=== PATIENT | female | born 1990 | race American Indian/Alaskan Native ===

== ENCOUNTER 2016-10-14 14:14 | Emergency (ER) | payer OTHER, MEDICAID ==
[2016-10-14 14:32] VITALS: BP 140/93
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
[2016-10-14 18:07] LABS: Bilirubin,Urine NEG (Negative); Blood,Urine NEG (Negative); Ketones,Urine 20 mg/dL (Negative); Leukocyte Esterase,Urine TR (Negative); Mucus,Urine 3+ /HPF; Nitrite,Urine NEG (Negative); Protein,Urine <15 mg/dL mg/dL (Negative); Urobilinogen,Urine < 2.0 mg/dL (<2.0)
== END 2016-10-14 18:28 | disposition home or self-care (01) ==
LOC: ED 14:14
DX: N39.0 Urinary tract infection, site not specified (principal); Z91.040 Latex allergy status
CPT/HCPCS: 81001; 81025; 99282

== ENCOUNTER 2016-10-24 13:46 | Emergency (ER) | payer MEDICAID, OTHER ==
[2016-10-24] MEDS ORDERED: ATARAX PO ONE (16:48)
[2016-10-24] MEDS ORDERED: PEPCID PO ONE (16:49)
--- NOTE | 2016-10-24 17:03 | Emergency Department Report ---
ED Allergic Reaction HPI - General Chief complaint: Upper Respiratory Infection Stated complaint: HIVES/BODY ACHES/COUGH/DIFF BREATHING Time Seen by Provider: 10/24/16 16:28 Source: patient Mode of arrival: Ambulatory Limitations: No Limitations - History of Present Illness Initial Comments: 5-year-old female past medical history recurrent UTIs presents with complaint of persistent feeling of dysuria despite antibiotic use, patient placed on a regimen of Bactrim last week for UTI symptoms. Patient states that her symptoms have persisted and she is also experiencing a itchy diffuse rash in arms legs chest back and abdomen. Patient denies any fever or chills nausea or vomiting denies any flank pain. Denies any swelling of her face and lips, denies any dyspnea no difficulty breathing MD Complaint: allergic reaction, hives Onset/Timin -: week(s) Symptoms: rash, itching - Related Data Previous Rx's Medication Instructions Recorded Last Taken Type Promethazine [Phenergan] 25 mg PO Q6H PRN #20 tablet 06/28/13 01/24/14 Rx Promethazine [Phenergan] 25 mg [place] Q6H PRN #6 supp.rect 06/28/13 Unknown Rx Cephalexin [Keflex] 500 mg PO BID #14 capsule 06/29/13 Unknown Rx Vit-Fe Fumar-FA [ 1 each PO QDAY #30 tablet 06/29/13 Unknown Rx Vitamin] metroNIDAZOLE 0.75% [Metrogel 1 applicatio TP BID #1 tube 06/29/13 02/10/14 Rx 0.75%] Ferrous Sulfate [Feosol 325 MG tab] 325 mg PO BID #60 tablet 02/15/14 Unknown Rx Ibuprofen [Motrin 600 MG tab] 600 mg PO Q6HR PRN #30 tablet 02/15/14 Unknown Rx Vit-Fe Fumar-FA [ 1 each PO QDAY #30 tablet 02/15/14 Unknown Rx Vitamin] Sulfamethoxazole/Trimethoprim 1 each PO BID #10 tablet 10/14/16 Unknown Rx [Bactrim DS TAB] Hydroxyzine HCl 25 mg PO BID PRN #25 tablet 10/24/16 Unknown Rx Nitrofurantoin Oliver/M-Cryst 100 mg PO Q12HR #14 capsule 10/24/16 Unknown Rx [Macrobid CAP] Allergies Allergy/AdvReac Type Severity Reaction Status Date / Time latex Allergy Intermediate Itching Verified 02/14/14 02:20 ED Review of Systems ROS: Stated complaint: HIVES/BODY ACHES/COUGH/DIFF BREATHING Other details as noted in HPI ED Past Medical Hx - Past Medical History Previous Medical History?: No Hx Hypertension: No Hx Congestive Heart Failure: No Hx Diabetes: No Hx Deep Vein Thrombosis: No Hx Renal Disease: No Hx Sickle Cell Disease: No Hx Seizures: No Hx Asthma: No Hx COPD: No Hx HIV: No - Surgical History Past Surgical History?: Yes Additional Surgical History: oral surgery - Social History Smoking Status: Never Smoker Substance Use Type: None - Medications Home Medications: Home Medications Medication Instructions Recorded Confirmed Last Taken Type Promethazine [Phenergan] 25 mg PO Q6H PRN #20 tablet 06/28/13 02/14/14 01/24/14 Rx Promethazine [Phenergan] 25 mg [place] Q6H PRN #6 supp.rect 06/28/13 02/14/14 Unknown Rx Cephalexin [Keflex] 500 mg PO BID #14 capsule 06/29/13 02/14/14 Unknown Rx Vit-Fe Fumar-FA [ 1 each PO QDAY #30 tablet 06/29/13 02/14/14 Unknown Rx Vitamin] metroNIDAZOLE 0.75% [Metrogel 1 applicatio TP BID #1 tube 06/29/13 02/14/1409/25 Rx 0.75%] Ferrous Sulfate [Feosol 325 MG tab] 325 mg PO BID #60 tablet 02/15/14 Unknown Rx Ibuprofen [Motrin 600 MG tab] 600 mg PO Q6HR PRN #30 tablet 02/15/14 Unknown Rx Vit-Fe Fumar-FA [ 1 each PO QDAY #30 tablet 02/15/14 Unknown Rx Vitamin] Sulfamethoxazole/Trimethoprim 1 each PO BID #10 tablet 10/14/16 Unknown Rx [Bactrim DS TAB] Hydroxyzine HCl 25 mg PO BID PRN #25 tablet 10/24/16 Unknown Rx Nitrofurantoin [place]/M-Cryst 100 mg PO Q12HR #14 capsule 10/24/16 Unknown Rx [Macrobid CAP] ED Physical Exam - General Limitations: No Limitations General appearance: alert, in no apparent distress - Head Head exam: Present: atraumatic, normocephalic - Eye Eye exam: Present: normal appearance, PERRL, EOMI - ENT ENT exam: Present: normal exam, normal orophraynx, mucous membranes moist - Neck Neck exam: Present: normal inspection - Respiratory Respiratory exam: Present: normal lung sounds bilaterally. Absent: respiratory distress - Cardiovascular Cardiovascular Exam: Present: regular rate, normal rhythm. Absent: systolic murmur, diastolic murmur, rubs, gallop - GI/Abdominal GI/Abdominal exam: Present: soft, normal bowel sounds - Extremities Exam Extremities exam: Present: normal inspection - Back Exam Back exam: Present: normal inspection - Neurological Exam Neurological exam: Present: alert, oriented X3, CN II-XII intact, normal gait - Psychiatric Psychiatric exam: Present: normal affect, normal mood - Skin Skin exam: Present: warm, dry, intact, normal color, rash, urticaria ED Course Vital Signs 10/24/16 10/24/16 13:51 18:34 Temperature 98.3 F Pulse Rate 109 H 97 H Respiratory 18 16 Rate Blood Pressure 132/85 Blood Pressure 127/79 [Left] O2 Sat by Pulse 100 97 Oximetry ED Medical Decision Making - Medical Decision Making A/P: UTI, medication allergy 1-a likely has rash secondary to Bactrim use, still has evidence of UTI and urine will give patient a course of macrobid instead for empiric coverage 2-1 dose of hydroxyzine and Pepcid gave patient immediate relief of itching and has resolved some of rash. We'll give patient outpatient regimen of these medicines for allergic reaction pruritus and rash 3-patient to follow-up with primary medical doctor 4-urine culture sent 5- advised patient to return if symptoms worsen Critical care attestation.: If time is entered above; I have spent that time in minutes in the direct care of this critically ill patient, excluding procedure time. ED Disposition Clinical Impression: UTI (urinary tract infection) Qualifiers: Urinary tract infection type: acute cystitis Hematuria presence: without hematuria Qualified Code(s): N30.00 - Acute cystitis without hematuria Allergic reaction caused by a drug Qualifiers: Encounter type: initial encounter Qualified Code(s): T78.40XA - Allergy, unspecified, initial encounter Disposition: PATIENT REGISTERED,NO TRIAGE Is pt being admited?: No Does the pt Need Aspirin: No Condition: Stable Instructions: Urinary Tract Infection in Women (ED), Urticaria (ED), Antibiotic Medication Allergy (ED), Dysuria (ED) Prescriptions: Hydroxyzine HCl 25 mg PO BID PRN #25 tablet PRN Reason: Allergy Symptoms Nitrofurantoin [place]/M-Cryst [Macrobid CAP] 100 mg PO Q12HR #14 capsule Referrals: [facility]– [place][Note 2] [Outside] - 3-5 Days RUEL CARCAMO JR, MD [Staff Physician] - 3-5 Days PRIMARY CARE, [Primary Care Provider] - 3-5 Days
[2016-10-24 17:21] LABS: Bacteria,Urine 1+ /HPF (Negative); Bilirubin,Urine NEG (Negative); Blood,Urine SM (Negative); Ketones,Urine TR mg/dL (Negative); Leukocyte Esterase,Urine LG (Negative); Mucus,Urine FEW /HPF; Nitrite,Urine NEG (Negative); Protein,Urine <15 mg/dL mg/dL (Negative); Urobilinogen,Urine < 2.0 mg/dL (<2.0)
[2016-10-24 18:35] VITALS: BP 127/79
== END 2016-10-24 18:34 | disposition left against medical advice (07) ==
LOC: ED 13:46
DX: N30.00 Acute cystitis without hematuria (principal); T78.40XA Allergy, unspecified, initial encounter; Y92.9 Unspecified place or not applicable
CPT/HCPCS: 81001; 81025; 87086; 99283

== ENCOUNTER 2017-08-10 19:01 | Emergency (ER) | payer MEDICAID ==
[2017-08-10 20:35] LABS: Eosinophils % (Auto) 0.4 % (0.0-4.3); Hematocrit 38.5 % (30.3-42.9); Hemoglobin 12.6 gm/dl (10.1-14.3); Mean Corpuscular HGB Conc 33 % (30-34); Mean Corpuscular Hemoglobin 28 pg (28-32); Mean Corpuscular Volume 85 fl (79-97); Platelet Count 372 K/mm3 (140-440); Red Blood Count 4.53 M/mm3 (3.65-5.03); Red Cell Distribution Width 14.4 % (13.2-15.2); White Blood Count 8.2 K/mm3 (4.5-11.0)
[2017-08-10 20:51] LABS: BUN/Creatinine Ratio 10; Blood Urea Nitrogen 6 mg/dL (7-17); Calcium 9.8 mg/dL (8.4-10.2); Carbon Dioxide 26 mmol/L (22-30); Glucose 116 mg/dL (65-100)
[2017-08-10 20:52] LABS: Anion Gap 19 mmol/L; Chloride 97.5 mmol/L (98-107); Potassium 3.5 mmol/L (3.6-5.0); Sodium 139 mmol/L (137-145)
[2017-08-11 02:25] VITALS: BP 99/48
[2017-08-11] MEDS ORDERED: MOTRIN PO ONE (03:03)
[2017-08-11] MEDS ORDERED: TYLENOL PO ONE (03:03)
--- NOTE | 2017-08-11 03:57 | Emergency Department Report ---
ED General Adult HPI - General Chief complaint: Chest Pain Stated complaint: JOINT PAIN Time Seen by Provider: 08/11/17 02:19 Source: patient Mode of arrival: Ambulatory Limitations: No Limitations - History of Present Illness Initial comments: Patient is a 26-year-old female no significant past medical history who presents with joint pain and weakness has been going on for last couple days. Patient denies any vaginal discharge or vaginal bleeding. She states that her pain is a 5 out of 10 and is worse with working and better with rest. Patient denies any nausea or vomiting or any sick contacts. She also complains of stuffy nose and dry cough that's been going on. She denies having any fevers. Her pain is an achy type pain throughout her body and it is intermittent Severity scale (0 -10): 3 - Related Data Previous Rx's Medication Instructions Recorded Last Taken Type Promethazine [Phenergan] 25 mg PO Q6H PRN #20 tablet 06/28/13 01/24/14 Rx Promethazine [Phenergan] 25 mg DC Q6H PRN #6 supp.rect 06/28/13 Unknown Rx Cephalexin [Keflex] 500 mg PO BID #14 capsule 06/29/13 Unknown Rx Vit-Fe Fumar-FA [ 1 each PO QDAY #30 tablet 06/29/13 Unknown Rx Vitamin] metroNIDAZOLE 0.75% [Metrogel 1 applicatio TP BID #1 tube 06/29/13 02/10/14 Rx 0.75%] Ferrous Sulfate [Feosol 325 MG tab] 325 mg PO BID #60 tablet 02/15/14 Unknown Rx Ibuprofen [Motrin 600 MG tab] 600 mg PO Q6HR PRN #30 tablet 02/15/14 Unknown Rx Vit-Fe Fumar-FA [ 1 each PO QDAY #30 tablet 02/15/14 Unknown Rx Vitamin] Sulfamethoxazole/Trimethoprim 1 each PO BID #10 tablet 10/14/16 Unknown Rx [Bactrim DS TAB] Hydroxyzine HCl 25 mg PO BID PRN #25 tablet 10/24/[address] [place]/M-Cryst 100 mg PO Q12HR #14 capsule 10/24/16 Unknown Rx [Macrobid CAP] Ibuprofen 400 mg PO Q8HR #30 tablet 08/11/17 Unknown Rx Allergies Allergy/AdvReac Type Severity Reaction Status Date / Time latex Allergy Intermediate Itching Verified 02/14/14 02:20 ED Review of Systems ROS: Stated complaint: JOINT PAIN Other details as noted in HPI Constitutional: denies: chills, fever Eyes: denies: eye pain, eye discharge, vision change ENT: denies: ear pain, throat pain Respiratory: denies: cough, shortness of breath, wheezing Cardiovascular: denies: chest pain, palpitations Endocrine: no symptoms reported Gastrointestinal: denies: abdominal pain, nausea, diarrhea Genitourinary: denies: urgency, dysuria, discharge Musculoskeletal: myalgia. denies: back pain, joint swelling, arthralgia Skin: denies: rash, lesions Neurological: denies: headache, weakness, paresthesias Psychiatric: denies: anxiety, depression Hematological/Lymphatic: denies: easy bleeding, easy bruising ED Past Medical Hx - Past Medical History Previous Medical History?: No Hx Hypertension: No Hx Congestive Heart Failure: No Hx Diabetes: No Hx Deep Vein Thrombosis: No Hx Renal Disease: No Hx Sickle Cell Disease: No Hx Seizures: No Hx Asthma: No Hx COPD: No Hx HIV: No - Surgical History Past Surgical History?: Yes Additional Surgical History: oral surgery - Social History Smoking Status: Never Smoker - Medications Home Medications: Home Medications Medication Instructions Recorded Confirmed Last Taken Type Promethazine [Phenergan] 25 mg PO Q6H PRN #20 tablet 06/28/13 02/14/14 01/24/14 Rx Promethazine [Phenergan] 25 mg DC Q6H PRN #6 supp.rect 06/28/13 02/14/14 Unknown Rx Cephalexin [Keflex] 500 mg PO BID #14 capsule 06/29/13 02/14/14 Unknown Rx Vit-Fe Fumar-FA [ 1 each PO QDAY #30 tablet 06/29/13 02/14/14 Unknown Rx Vitamin] metroNIDAZOLE 0.75% [Metrogel 1 applicatio TP BID #1 tube 06/29/13 02/14/1409/25 Rx 0.75%] Ferrous Sulfate [Feosol 325 MG tab] 325 mg PO BID #60 tablet 02/15/14 Unknown Rx Ibuprofen [Motrin 600 MG tab] 600 mg PO Q6HR PRN #30 tablet 02/15/14 Unknown Rx Vit-Fe Fumar-FA [ 1 each PO QDAY #30 tablet 02/15/14 Unknown Rx Vitamin] Sulfamethoxazole/Trimethoprim 1 each PO BID #10 tablet 10/14/16 Unknown Rx [Bactrim DS TAB] Hydroxyzine HCl 25 mg PO BID PRN #25 tablet 10/24/[address] [place]/M-Cryst 100 mg PO Q12HR #14 capsule 10/24/16 Unknown Rx [Macrobid CAP] Ibuprofen 400 mg PO Q8HR #30 tablet 08/11/17 Unknown Rx ED Physical Exam - General Limitations: No Limitations General appearance: alert, in no apparent distress - Head Head exam: Present: atraumatic, normocephalic - Eye Eye exam: Present: normal appearance - ENT ENT exam: Present: mucous membranes moist - Neck Neck exam: Present: normal inspection - Respiratory Respiratory exam: Present: normal lung sounds bilaterally. Absent: respiratory distress - Cardiovascular Cardiovascular Exam: Present: regular rate, normal rhythm. Absent: systolic murmur, diastolic murmur, rubs, gallop - GI/Abdominal GI/Abdominal exam: Present: soft, normal bowel sounds - Extremities Exam Extremities exam: Present: normal inspection - Back Exam Back exam: Present: normal inspection - Neurological Exam Neurological exam: Present: alert, oriented X3 - Psychiatric Psychiatric exam: Present: normal affect, normal mood - Skin Skin exam: Present: warm, dry, intact, normal color. Absent: rash ED Course Vital Signs 08/10/17 08/11/17 08/11/17 19:37 00:30 00:42 Temperature 98.1 F 98.4 F Pulse Rate 114 H 83 Respiratory 18 18 Rate Blood Pressure 130/94 145/82 Blood Pressure 145/82 [Left] O2 Sat by Pulse 100 98 Oximetry 08/11/17 08/11/17 08/11/17 00:44 00:45 01:00 Temperature Pulse Rate 83 89 94 H Respiratory 18 13 12 Rate Blood Pressure 129/83 Blood Pressure [Left] O2 Sat by Pulse Oximetry 08/11/17 08/11/17 08/11/17 01:15 01:30 01:45 Temperature Pulse Rate 89 92 H 95 H Respiratory 15 18 10 L Rate Blood Pressure 127/85 122/77 114/64 Blood Pressure [Left] O2 Sat by Pulse 99 Oximetry 08/11/17 08/11/17 02:00 02:15 Temperature Pulse Rate 81 76 Respiratory 11 L 15 Rate Blood Pressure 117/55 99/48 Blood Pressure [Left] O2 Sat by Pulse 99 Oximetry ED Medical Decision Making - Lab Data Result diagrams: 08/10/17 20:23 08/10/17 20:23 Lab Results 08/10/17 08/10/17 08/10/17 Range/Units 20:23 20:23 20:23 WBC 8.2 (4.5-11.0) K/mm3 RBC 4.53 (3.65-5.03) M/mm3 Hgb 12.6 (10.1-14.3) gm/dl Hct 38.5 (30.3-42.9) % MCV 85 (79-97) fl MCH 28 (28-32) pg MCHC 33 (30-34) % RDW 14.4 (13.2-15.2) % Plt Count 372 (140-440) K/mm3 Lymph % (Auto) 30.9 (13.4-35.0) % [place] % (Auto) 8.5 H (0.0-7.3) % Eos % (Auto) 0.4 (0.0-4.3) % Baso % (Auto) 1.0 (0.0-1.8) % Lymph # 2.5 (1.2-5.4) K/mm3 [place] # 0.7 (0.0-0.8) K/mm3 Eos # 0.0 (0.0-0.4) K/mm3 Baso # 0.1 (0.0-0.1) K/mm3 Seg Neutrophils % 59.2 (40.0-70.0) % Seg Neutrophils # 4.8 (1.8-7.7) K/mm3 Sodium 139 (137-145) mmol/L Potassium 3.5 L (3.6-5.0) mmol/L Chloride 97.5 L (98-107) mmol/L Carbon Dioxide 26 (22-30) mmol/L Anion Gap 19 mmol/L BUN 6 L (7-17) mg/dL Creatinine 0.6 L (0.7-1.2) mg/dL Estimated GFR > 60 ml/min BUN/Creatinine Ratio 10 % Glucose 116 H (65-100) mg/dL Calcium 9.8 (8.4-10.2) mg/dL Troponin T < 0.010 (0.00-0.029) ng/mL HCG, Qual Negative (Negative) 08/10/17 08/11/17 Range/Units 22:33 02:14 WBC (4.5-11.0) K/mm3 RBC (3.65-5.03) M/mm3 Hgb (10.1-14.3) gm/dl Hct (30.3-42.9) % MCV (79-97) fl MCH (28-32) pg MCHC (30-34) % RDW (13.2-15.2) % Plt Count (140-440) K/mm3 Lymph % (Auto) (13.4-35.0) % [place] % (Auto) (0.0-7.3) % Eos % (Auto) (0.0-4.3) % Baso % (Auto) (0.0-1.8) % Lymph # (1.2-5.4) K/mm3 [place] # (0.0-0.8) K/mm3 Eos # (0.0-0.4) K/mm3 Baso # (0.0-0.1) K/mm3 Seg Neutrophils % (40.0-70.0) % Seg Neutrophils # (1.8-7.7) K/mm3 Sodium (137-145) mmol/L Potassium (3.6-5.0) mmol/L Chloride (98-107) mmol/L Carbon Dioxide (22-30) mmol/L Anion Gap mmol/L BUN (7-17) mg/dL Creatinine (0.7-1.2) mg/dL Estimated GFR ml/min BUN/Creatinine Ratio % Glucose (65-100) mg/dL Calcium (8.4-10.2) mg/dL Troponin T < 0.010 < 0.010 (0.00-0.029) ng/mL HCG, Qual (Negative) - EKG Data -: EKG Interpreted by Me - EKG Data 08/11/17 03:59 EKG shows normal sinus rhythm no ST segment elevation or T wave inversion normal axis - Medical Decision Making Chief medical diagnosis: Influenza Differential medical diagnosis: Hypokalemia, hyponatremia, non-STEMI CBC, CMP, EKG, troponin and re-evaluate patient. Patient most likely has viral illness given signs and symptoms. Patient's lab work is unremarkable I will give patient Tylenol or Motrin to go home with. Discussed found patient patient agrees plan additional verbal discharge contractions were given. Critical care attestation.: If time is entered above; I have spent that time in minutes in the direct care of this critically ill patient, excluding procedure time. ED Disposition Clinical Impression: Myalgia, Viral illness Disposition: DC-01 TO HOME OR SELFCARE Is pt being admited?: No Does the pt Need Aspirin: No Condition: Stable Instructions: Influenza (ED) Prescriptions: Ibuprofen 400 mg PO Q8HR #30 tablet Referrals: SALOMON THOMPSON MD [Primary Care Provider] - 3-5 Days
== END 2017-08-11 04:37 | disposition home or self-care (01) ==
LOC: ED 19:01
DX: B34.9 Viral infection, unspecified (principal); M79.1 Myalgia
CPT/HCPCS: 36415; 80048; 84484; 84703; 85025; 93005; 93010

== ENCOUNTER 2017-08-12 20:21 | Emergency (ER) | payer MEDICAID ==
[2017-08-12 20:55] LABS: Basophils % (Auto) 0.7 % (0.0-1.8); Eosinophils % (Auto) 1.2 % (0.0-4.3); Hematocrit 38.5 % (30.3-42.9); Hemoglobin 12.3 gm/dl (10.1-14.3); Mean Corpuscular HGB Conc 32 % (30-34); Mean Corpuscular Hemoglobin 27 pg (28-32); Mean Corpuscular Volume 85 fl (79-97); Platelet Count 392 K/mm3 (140-440); Red Blood Count 4.52 M/mm3 (3.65-5.03); Red Cell Distribution Width 14.5 % (13.2-15.2); White Blood Count 7.3 K/mm3 (4.5-11.0)
[2017-08-12 21:06] LABS: Anion Gap 17 mmol/L; BUN/Creatinine Ratio 10; Blood Urea Nitrogen 7 mg/dL (7-17); Calcium 9.9 mg/dL (8.4-10.2); Carbon Dioxide 28 mmol/L (22-30); Chloride 97.5 mmol/L (98-107); Glucose 105 mg/dL (65-100); Potassium 3.5 mmol/L (3.6-5.0); Sodium 139 mmol/L (137-145)
--- NOTE | 2017-08-12 22:13 | XRay Report ---
FINAL REPORT PROCEDURE: XR CHEST ROUTINE 2V TECHNIQUE: PA and lateral chest radiographs were obtained. CPT 04710 HISTORY: Shortness of breath COMPARISON: No prior studies are available for comparison. FINDINGS: Heart: Normal. Mediastinum/Vessels: Normal. Lungs/Pleural space: Normal. Bony thorax: No acute osseous abnormality. Moderate thoracic scoliosis present convex the left apex T4-T5 level. Other: IMPRESSION: Scoliosis. No evidence of acute cardiac or pulmonary process..
--- NOTE | 2017-08-13 01:05 | Emergency Department Report ---
HPI - General Chief Complaint: Dyspnea/Respdistress Time Seen by Provider: 08/13/17 00:47 - HPI HPI: Patient is a 26-year-old female presents to the ED complaining of generalized body aches and having some difficulty breathing earlier today is now resolved. Patient states she was diagnosed with the flu couple of days ago and has been taking some TheraFlu medication for her symptoms. Patient states she sat allergies and was taking some allergy medication but did not like it because it was making her itch. Patient denies any fevers/chills/nausea/vomiting/chest pain/P/dizziness ED Past Medical Hx - Past Medical History Hx Hypertension: No Hx Congestive Heart Failure: No Hx Diabetes: No Hx Deep Vein Thrombosis: No Hx Renal Disease: No Hx Sickle Cell Disease: No Hx Seizures: No Hx Asthma: No Hx COPD: No Hx HIV: No - Surgical History Additional Surgical History: oral surgery - Social History Smoking Status: Never Smoker Substance Use Type: None - Medications Home Medications: Home Medications Medication Instructions Recorded Confirmed Last Taken Type Promethazine [Phenergan] 25 mg PO Q6H PRN #20 tablet 06/28/13 02/14/14 01/24/14 Rx Promethazine [Phenergan] 25 mg IA Q6H PRN #6 supp.rect 06/28/13 02/14/14 Unknown Rx Cephalexin [Keflex] 500 mg PO BID #14 capsule 06/29/13 02/14/14 Unknown Rx Vit-Fe Fumar-FA [ 1 each PO QDAY #30 tablet 06/29/13 02/14/14 Unknown Rx Vitamin] metroNIDAZOLE 0.75% [Metrogel 1 applicatio TP BID #1 tube 06/29/13 02/14/1409/25 Rx 0.75%] Ferrous Sulfate [Feosol 325 MG tab] 325 mg PO BID #60 tablet 02/15/14 Unknown Rx Vit-Fe Fumar-FA [ 1 each PO QDAY #30 tablet 02/15/14 Unknown Rx Vitamin] Sulfamethoxazole/Trimethoprim 1 each PO BID #10 tablet 10/14/16 Unknown Rx [Bactrim DS TAB] Hydroxyzine HCl 25 mg PO BID PRN #25 tablet 10/24/16 [address]itro[address] [place]/M-Cryst 100 mg PO Q12HR #14 capsule 10/24/16 Unknown Rx [Macrobid CAP] Ibuprofen 400 mg PO Q8HR #30 tablet 08/11/17 Unknown Rx ALBUTEROL Inhaler [ProAir HFA 2 puff IH QID PRN #1 pump 08/13/17 Unknown Rx Inhaler] Cetirizine HCl [Zyrtec] 10 mg PO DAILY #24 tablet 08/13/17 Unknown Rx Ibuprofen [Motrin 600 MG tab] 600 mg PO Q6HR PRN #30 tablet 08/13/17 Unknown Rx ED Review of Systems ROS: Stated complaint: CHERIE Other details as noted in HPI Constitutional: denies: chills, fever Eyes: denies: eye pain, eye discharge, vision change ENT: denies: ear pain, throat pain Respiratory: cough, shortness of breath. denies: wheezing Cardiovascular: denies: chest pain, palpitations Endocrine: no symptoms reported Gastrointestinal: denies: abdominal pain, nausea, diarrhea Genitourinary: denies: urgency, dysuria, discharge Musculoskeletal: denies: back pain, joint swelling, arthralgia Skin: denies: rash, lesions Neurological: denies: headache, weakness, paresthesias Psychiatric: denies: anxiety, depression Hematological/Lymphatic: denies: easy bleeding, easy bruising Physical Exam - Physical Exam Vital Signs: Vital Signs 08/12/17 20:26 Temperature 98.6 F Pulse Rate 114 H Respiratory 16 Rate Blood Pressure 122/74 O2 Sat by Pulse 100 Oximetry Physical Exam: GENERAL: Alert and oriented x3, no apparent distress, Normal Gait, atraumatic. HEAD: Head is normocephalic and a-traumatic. EYES: Extra ocular muscles are intact. Pupils are equal, round, and reactive to light and accommodation. EARS: symetrical, atraumatic, non tender, ear canal clear and moderate cerumen, tympanic membrance non inflamed. gross auditory nml bilaterally. NOSE: Nose symetrical, Nontender,Nares appeared normal. MOUTH:Mouth is well hydrated and without lesions. Tonsils nonerythematous or swollen, Uvula midline, Tongue not elevated. Mucous membranes are moist. Posterior pharynx clear, no exudate or lesions. Patent airways. NECK: Supple. Non edematous. No lymphadenopathy or thyromegaly. No rigidity LUNGS: Symetrical with respiration, No wheezing, no rales or crackles, CTAB. HEART: S1, S2 present, regular rate and rhythm without murmur, no rubs, no gallops. Non tender to palpation BACK: Full range of motion, no spinal tenderness, nontender to palpation. SKIN: Warm and dry, No lesions, No ulceration or induration present. ED Course Vital Signs 08/12/17 20:26 Temperature 98.6 F Pulse Rate 114 H Respiratory 16 Rate Blood Pressure 122/74 O2 Sat by Pulse 100 Oximetry ED Medical Decision Making - Lab Data Result diagrams: 08/12/17 20:36 08/12/17 20:36 - EKG Data Interpretation: normal EKG - Radiology Data Radiology results: report reviewed, image reviewed INAL REPORT PROCEDURE: XR CHEST ROUTINE 2V TECHNIQUE: PA and lateral chest radiographs were obtained. CPT 58800 HISTORY: Shortness of breath COMPARISON: No prior studies are available for comparison. FINDINGS: Heart: Normal. Mediastinum/Vessels: Normal. Lungs/Pleural space: Normal. Bony thorax: No acute osseous abnormality. Moderate thoracic scoliosis present convex the left apex T4-T5 level. Other: IMPRESSION: Scoliosis. No evidence of acute cardiac or pulmonary process.. - Medical Decision Making 26-year-old female presents with bronchitis Chest x-ray, CBC, BMP, urine test and urinalysis all ordered All labs within normal limits. I discussed findings with patient. I discussed the patient to continue symptomatic relief with TheraFlu cough suppressant and follow up with the primary care physician. I discussed with the patient that if she has worsening symptoms to return to ED immediately. Vital signs are normal patient is in no acute distress. Patient had an uneventful ED stay. Critical care attestation.: If time is entered above; I have spent that time in minutes in the direct care of this critically ill patient, excluding procedure time. ED Disposition Clinical Impression: Bronchitis Disposition: [id number] TO HOME OR SELFCARE Is pt being admited?: No Does the pt Need Aspirin: No Condition: Stable Instructions: Chronic Bronchitis (ED) Additional Instructions: Rest. Drink plenty of fluids If your symptoms worsen return to ED. follow-up with her primary care physician Take medication as prescribed Prescriptions: ALBUTEROL Inhaler [ProAir HFA Inhaler] 2 puff IH QID PRN #1 pump PRN Reason: Shortness Of Breath Cetirizine HCl [Zyrtec] 10 mg PO DAILY #24 tablet Ibuprofen [Motrin 600 MG tab] 600 mg PO Q6HR PRN #30 tablet PRN Reason: Mild Pain Unrelieved By Apap Referrals: SALOMON THOMPSON MD [Primary Care Provider] - 3-5 Days Forms: Accompanied Note, Work/School Release Form(ED) Time of Disposition: 01:29
[2017-08-13] MEDS ORDERED: DELTASONE PO ONE (01:29)
[2017-08-13 01:54] VITALS: BP 118/73
== END 2017-08-13 01:53 | disposition home or self-care (01) ==
LOC: ED 20:21
DX: J40 Bronchitis, not specified as acute or chronic (principal); M79.1 Myalgia
CPT/HCPCS: 36415; 71020; 80048; 84484; 84703; 85025; 93005; 93010; 99284; J7512